=== PATIENT | female | born 1990 | race Caucasian/White ===

== ENCOUNTER → 2018-01-12 | Outpatient (CLI) | payer OTHER ==
[~2018-01-12] MED LIST: SPRI28TA PO
== END ==
LOC: HPND 07:45
PROVIDERS: ATTEND Family Medicine
DX: O26.842 Uterine size-date discrepancy, second trimester (principal); Z34.92 Encounter for supervision of normal pregnancy, unspecified, second trimester
CPT/HCPCS: 76805

== ENCOUNTER → 2018-02-09 | Outpatient (CLI) | payer OTHER | LOC: HPND 07:48 | PROVIDERS: ATTEND Family Medicine | DX: O26.842 Uterine size-date discrepancy, second trimester (principal); Z36.2 Encounter for other antenatal screening follow-up; Z3A.00 Weeks of gestation of pregnancy not specified | CPT/HCPCS: 76816 ==

== ENCOUNTER 2018-06-15 19:00 | Inpatient (IN) ==
[2018-06-15] MEDS ORDERED: Sod Chloride 0.9% Inj 1,000 ML IV.CONT PRN (19:46)
[2018-06-15] MEDS ORDERED: Naloxone Inj 0.4 MG/ML Vial IV.PUSH PRN (19:46)
[2018-06-15] MEDS ORDERED: fentaNYL Citrate Inj 100 MCG/2 ML Ampul IV.PUSH PRN ×2 (19:46)
[2018-06-15] MEDS ORDERED: Oxytocin 30 Units/500ml Premix 30 UNITS/500 ML BAG IV.SIG ONE (19:46)
[2018-06-15] MEDS ORDERED: Sodium Chlor 0.9% Inj 500 ML IV.SIG PRN (19:46)
--- NOTE | 2018-06-15 19:57 | ED ---
History of Present Illness Primary Care Physician: NOT REQUIRED Chief Complaint: Loss of fluids History of Present Illness: 27-year-old female at 37 weeks and 2 days presents with loss of fluids and contractions. She broke her water at 5 PM. Her contractions have been every 5 minutes. Denies vaginal bleeding or decreased movement. Her has been uncomplicated. GBS negative. Previous delivery was at term vaginally. No complications with that . Denies any chest pain, shortness of breath or urinary symptoms at this time. Per chart review recurrent UTIs the last on 11 June was positive for nitrates. Patient was given Macrobid but states that she never had prescription filled. In May patient was also found to be anemic H&H 9.7 31.6. Weeks Gestation:: 37 Para: 1 : 2 - Inpatient Certification I certify that the inpatient services were ordered in accordance with Medicare regulations governing the order. This includes certification that hospital inpatient services are reasonable and necessary and in the case of services not specified as inpatient-only under 42 CFR 419.22(n), that they are appropriately provided as inpatient services in accordance to with the 2-midnight benchmark under 43 CFR 412.3(e) Estimated Total Length of Stay (Days): 3 Plans for Post Hospital Care: Home Review of Systems All other systems reviewed negative except as stated in HPI PMFSH - Medical / Surgical Hx Neg / Unobtainable Medical Problems Denied: Yes Surgical History: No Previous Surgery - Tobacco History Tobacco Use In Past 30 Days: No Smoking Status: Never smoker - Alcohol History How Often Do You Have a Drink Containing Alcohol: Never - Substance Use History Substance History: No History of Abuse Medications and Allergies Allergies Allergy/AdvReac Type Severity Reaction Status Date / Time No Known Allergies Allergy Uncoded 10/30/16 15:26 Exam Vital signs: Vital Signs 06/15/18 19:35 06/15/18 19:36 Temperature 98.5 F Pulse Rate 86 Respiratory Rate 18 Blood Pressure 116/76 Narrative: GENERAL: Well-nourished, well-developed patient. SKIN: Warm and dry. HEAD: Normocephalic and atraumatic. EYES: No scleral icterus. No injection or drainage. ENT: No nasal drainage noted. Mucous membranes pink. Airway patent. NECK: Supple, trachea midline. No JVD. CARDIOVASCULAR: Regular rate and rhythm without murmurs, gallops, or rubs. RESPIRATORY: Breath sounds equal bilaterally. No accessory muscle use. BREASTS: Bilateral exam showed no masses , no retractions, no nipple discharge. ABDOMEN/GI: Abdomen soft, non-tender, bowel sounds present, no rebound, no guarding GENITOURINARY: External Genitalia: intact and normal in appearance Cervix: posterior Dilatation: 2-3 Effacement: 60 Station: -3 Presentation: vertex Membranes: ruptured Uterine Contractions: 5-6 minutes FHT's: Category: 1 Baseline: 145 Reactive: yes Variability: moderate Decels: one variable EXTREMITIES: No cyanosis or edema. BACK: Nontender without obvious deformity. No CVA tenderness. NEUROLOGICAL: Awake and alert. Motor and sensory grossly within normal limits. Five out of 5 muscle strength in all muscle groups. Normal speech. Assessment and Plan - Diagnosis (1) Uterine contractions Status: Acute Plan: 27-year-old female at 37 weeks and 2 days who presents with rupture of membranes and contractions. Per patient and chart review GBS negative -Admit to labor and delivery -follow up on labs -if contractions less than 6 minutes apart consider oxytocin Discharge Plan - Discharge Disposition Patient Disposition: 30 Still Patient - Physicians Team ED Provider: Randall Robles Primary Care Provider: NOT REQUIRED,
[2018-06-15] MEDS ORDERED: Citric Acid/Sodium Citrate Liq 30 ML UDC PO SCH (20:00)
--- NOTE | 2018-06-15 20:01 | P.HPOB ---
History of Present Illness Primary Care Physician: NOT REQUIRED Chief Complaint: Loss of fluids History of Present Illness: 27-year-old female at 37 weeks and 2 days presents with loss of fluids and contractions. She broke her water at 5 PM. Her contractions have been every 5 minutes. Denies vaginal bleeding or decreased movement. Her has been uncomplicated. GBS negative. Previous delivery was at term vaginally. No complications with that . Denies any chest pain, shortness of breath or urinary symptoms at this time. Per chart review recurrent UTIs the last on 11 June was positive for nitrates. Patient was given Macrobid but states that she never had prescription filled. In May patient was also found to be anemic H&H 9.7 31.6. Weeks Gestation:: 37 - Inpatient Certification I certify that the inpatient services were ordered in accordance with Medicare regulations governing the order. This includes certification that hospital inpatient services are reasonable and necessary and in the case of services not specified as inpatient-only under 42 CFR 419.22(n), that they are appropriately provided as inpatient services in accordance to with the 2-midnight benchmark under 43 CFR 412.3(e) Estimated Total Length of Stay (Days): 3 Plans for Post Hospital Care: Home Review of Systems All other systems reviewed negative except as stated in HPI PMFSH - Medical / Surgical Hx Neg / Unobtainable Medical Problems Denied: Yes - Tobacco History Tobacco Use In Past 30 Days: No Smoking Status: Never smoker - Alcohol History How Often Do You Have a Drink Containing Alcohol: Never - Substance Use History Substance History: No History of Abuse Medications and Allergies Active Medications: Active Medications Citric Acid/Sodium Citrate (Sodium Citrate/Citric Acid Liq) 30 ml PO ALL TERRAIN VEHICLE RACER [facility] Stop: 06/19/18 19:59 Fentanyl Citrate (Fentanyl Inj) 50 mcg IV.PUSH Q1H PRN PRN Reason: Pain Scale 3 - 5 Fentanyl Citrate (Fentanyl Inj) 100 mcg IV.PUSH Q1H PRN PRN Reason: PAIN SCALE 6 TO 10 Lactated Ringer's (Lr 1000 Ml Inj) 1,000 mls @ 125 mls/hr IV.CONT .Q8H [facility] Lactated Ringer's (Lr 1000 Ml Inj) 1,000 mls @ 3,000 mls/hr IV.SIG UNSCH PRN PRN Reason: compromise or epidural Sodium Chloride (Ns Inj) 500 mls @ 1,000 mls/hr IV.SIG UNSCH PRN PRN Reason: SEE LABEL COMMENTS Sodium Chloride (Ns Inj) 1,000 mls @ 100 mls/hr IV.CONT .Q10H PRN PRN Reason: SEE LABEL COMMENTS Oxytocin (Pitocin 30 Units/Ns 500 Ml Premix) 30 units in 500 mls @ 999 mls/hr IV.SIG BOLUS ONE Stop: 06/15/18 20:16 Lidocaine HCl (Xylocaine 1% Inj) 0.1 ml I-DERMAL PRN PRN PRN Reason: For IV start Stop: 06/18/18 19:45 Lidocaine HCl (Xylocaine 1% Inj) 10 ml INFILTRATN PRN PRN PRN Reason: For episiotomy repair Stop: 06/17/18 19:45 Mineral Oil (Muri-Lube Oil) 10 ml TOPICAL PRN PRN PRN Reason: PRN perineal massage Naloxone HCl (Narcan Inj) 0.1 mg IV.PUSH Q2M PRN PRN Reason: for opiate reversal Allergies Allergy/AdvReac Type Severity Reaction Status Date / Time No Known Allergies Allergy Uncoded 10/30/16 15:26 Exam Vital signs: Vital Signs 06/15/18 19:35 06/15/18 19:36 Temperature 98.5 F Pulse Rate 86 Respiratory Rate 18 Blood Pressure 116/76 Narrative: GENERAL: Well-nourished, well-developed patient. SKIN: Warm and dry. HEAD: Normocephalic and atraumatic. EYES: No scleral icterus. No injection or drainage. ENT: No nasal drainage noted. Mucous membranes pink. Airway patent. NECK: Supple, trachea midline. No JVD. CARDIOVASCULAR: Regular rate and rhythm without murmurs, gallops, or rubs. RESPIRATORY: Breath sounds equal bilaterally. No accessory muscle use. BREASTS: Bilateral exam showed no masses , no retractions, no nipple discharge. ABDOMEN/GI: Abdomen soft, non-tender, bowel sounds present, no rebound, no guarding GENITOURINARY: External Genitalia: intact and normal in appearance Cervix: posterior Dilatation: 2-3 Effacement: 60 Station: -3 Presentation: vertex Membranes: ruptured Uterine Contractions: 5-6 minutes FHT's: Category: 1 Baseline: 145 Reactive: yes Variability: moderate Decels: one variable EXTREMITIES: No cyanosis or edema. BACK: Nontender without obvious deformity. No CVA tenderness. NEUROLOGICAL: Awake and alert. Motor and sensory grossly within normal limits. Five out of 5 muscle strength in all muscle groups. Normal speech. Caprini VTE Risk Assessment Caprini VTE Risk Assessment: No/Low Risk (score <= 1) Caprini Risk Assessment Model: Point Value = 1 Point Value = 2 Point Value = 3 Point Value = 5 Age 41-60 Minor surgery BMI > 25 kg/m2 Swollen legs Varicose veins or History of unexplained or recurrent spontaneous Oral contraceptives or hormone replacement Sepsis (< 1 month) Serious lung disease, including pneumonia (< 1 month) Abnormal pulmonary function Acute myocardial infarction Congestive heart failure (< 1 month) History of inflammatory bowel disease Medical patient at bed rest Age 61-74 Arthroscopic surgery Major open surgery (> 45 min) Laparoscopic surgery (> 45 min) Malignancy Confined to bed (> 72 hours) Immobilizing plaster cast Central venous access Age >= 75 History of VTE Family history of VTE Factor V Leiden Prothrombin [id number] Lupus anticoagulant Anticardiolipin antibodies Elevated serum homocysteine Heparin-induced thrombocytopenia Other congenital or acquired thrombophilia Stroke (< 1 month) Elective arthroplasty Hip, pelvis, or leg fracture Acute spinal cord injury (< 1 month) Prophylaxis Regimen: Total Risk Factor Score Risk Level Prophylaxis Regimen 0-1 Low Early ambulation 2 Moderate Order ONE of the following: *Sequential Compression Device (SCD) *Heparin 5000 units SQ BID 3-4 Higher Order ONE of the following medications: *Heparin 5000 units SQ TID *Enoxaparin/Lovenox 40 mg SQ daily (WT < 150 kg, CrCl > 30 mL/min) *Enoxaparin/Lovenox 30 mg SQ daily (WT < 150 kg, CrCl > 10-29 mL/min) *Enoxaparin/Lovenox 30 mg SQ BID (WT < 150 kg, CrCl > 30 mL/min) AND/OR *Sequential Compression Device (SCD) 5 or more Highest Order ONE of the following medications: *Heparin 5000 units SQ TID (Preferred with Epidurals) *Enoxaparin/Lovenox 40 mg SQ daily (WT < 150 kg, CrCl > 30 mL/min) *Enoxaparin/Lovenox 30 mg SQ daily (WT < 150 kg, CrCl > 10-29 mL/min) *Enoxaparin/Lovenox 30 mg SQ BID (WT < 150 kg, CrCl > 30 mL/min) AND *Sequential Compression Device (SCD) Assessment and Plan - Diagnosis (1) Uterine contractions Status: Acute Plan: 27-year-old female at 37 weeks and 2 days who presents with rupture of membranes and contractions. Per patient and chart review GBS negative -Admit to labor and delivery -follow up on labs -if contractions less than 6 minutes apart consider oxytocin
[2018-06-15 20:51] LABS: Baso % (Auto) 0.4 % (0.0-2.0); Eos % (Auto) 0.1 % (0.0-4.0); Hematocrit 34.5 % (35.0-46.0); Hemoglobin 11.1 gm/dL (11.6-15.3); Lymph # (Auto) 1.3 th/mm3 (1.0-4.8); Lymph % (Auto) 12.2 % (9.0-44.0); Mean Corpuscular HGB Conc 32.3 % (32.0-36.0); Mean Corpuscular Hemoglobin 26.3 pg (27.0-34.0); Mean Corpuscular Volume 81.5 fL (80.0-100.0); Mean Platelet Volume 9.4 fL (7.0-11.0); Mono # (Auto) 0.3 th/mm3 (0.0-0.9); Mono % (Auto) 2.7 % (0.0-8.0); Neut # (Auto) 8.8 th/mm3 (1.8-7.7); Neut % (Auto) 84.6 % (16.0-70.0); Platelet Count 251 th/mm3 (150-450); Red Blood Count 4.23 mil/mm3 (4.00-5.30); Red Cell Distribution Width 14.2 % (11.6-17.2); White Blood Count 10.4 th/mm3 (4.0-11.0)
[2018-06-15] MEDS ORDERED: fentaNYL 2MCG-Bupiv 0.125% Epi 150 ML EPIDURAL ONE (21:06)
[2018-06-15 21:52] LABS: Bacteria,Urine Few /hpf; Bilirubin,Urine Negative (Negative); Clarity,Urine Hazy (Clear); Color,Urine Yellow (Yellw/Straw); Glucose,Urine (UA) Negative (Negative); Leukocyte Esterase,Urine Small (Negative); Mucus,Urine Few /lpf (Occasional); Nitrite,Urine Negative (Negative); Specific Gravity,Urine 1.017 (1.002-1.035); Squamous Epithelial Cell,Urine 10 /hpf (0-5)
[2018-06-15 21:53] LABS: Amphetamine Urine With Conf Neg (Neg); Benzodiazepine Urine With Conf Neg (Neg)
[2018-06-15] MEDS ORDERED: fentaNYL Citrate Inj 100 MCG/2 ML Ampul EPIDURAL ONE (22:10)
[2018-06-15] MEDS ORDERED: fentaNYL 2MCG-Bupiv 0.125% Epi 150 ML EPIDURAL PRN (22:10)
[2018-06-16] MEDS ORDERED: Zolpidem Tartrate 5 MG Tablet PO PRN (00:25)
[2018-06-16] MEDS ORDERED: Witch Hazel 50%/Glyderin 12.5% 40 Pad Jar RECTAL PRN (00:25)
[2018-06-16] MEDS ORDERED: Bisacodyl 10 MG Supp RECTAL PRN (00:25)
[2018-06-16] MEDS ORDERED: Naloxone Inj 0.4 MG/ML Vial IV.PUSH PRN (00:25)
[2018-06-16] MEDS ORDERED: Acetaminophen 325 MG Tablet PO PRN (00:25)
[2018-06-16] MEDS ORDERED: Benzocaine 20% Top Spray 60 ML Can TOPICAL PRN (00:25)
[2018-06-16] MEDS ORDERED: Oxytocin 30 Units/500ml Premix 30 UNITS/500 ML BAG IV.CONT SCH (00:30)
--- NOTE | 2018-06-16 00:33 | P.OBDELI ---
Weeks Gestation: 37 Patient Started Active Labor: Yes Medical Induction of Labor: No Artificial Rupture of Membrane: No Anesthesia: Epidural Episiotomy: none Vaginal Delivery: Normal Presentation: Occiput anterior Nuchal Cord: x2 Delayed Cord Clamping (45 sec): No Placenta: Spontaneous delivery Laceration: None Estimated blood loss (mL): 200 Infant: Female Female A score (1 min): 9 score (5 min): 9 Additional Information: Head delivered by maternal effort. Nuchal cord X 2 clamped and cut. Anterior shoulder delivered without complication. Placenta delivered without complication. No repairs necessary.
[2018-06-16] MEDS: Senna/Docusate Sodium 8.6/50 MG Tablet PO SCH (10:00)
[2018-06-16] MEDS: Prenatal Vit/Ca/Iron/Folic Acid Tablet PO SCH (10:00)
[2018-06-16] MEDS: Ibuprofen 400 MG Tablet PO PRN ×2 (10:04→19:05)
[2018-06-16] MEDS ORDERED: Measles/Mumps/Rubella Vaccine Inj 0.5 ML Vial SQ ONE (16:00)
[2018-06-16] MEDS ORDERED: Diphtheria/Tetanus/Pertussis Vaccine Inj 0.5 ML Syringe IM ONE (16:00)
[2018-06-17] MEDS: Senna/Docusate Sodium 8.6/50 MG Tablet PO SCH ×2 (02:21→08:59)
--- NOTE | 2018-06-17 08:11 | P.PNOB ---
Subjective Post day: 1 Interval history: day #1 AFVSS overnight. Decreased lochia. Denies dysuria. No breast tenderness. Appetite good. No nausea or vomiting. Positive flatus/bowel movement. Ambulating well. Denies calf pain or shortness of breath. Otherwise, she is doing well this morning and has no other complaints. Objective Vital Signs/I&O: Vital Signs 06/16/18 20:00 06/17/18 00:00 Temperature 98.5 F 98.6 F Pulse Rate 79 68 Respiratory Rate 18 18 Blood Pressure 130/78 113/68 Result Diagrams: 06/15/18 20:30 Objective Remarks: GENERAL: Well-nourished, well-developed patient. CARDIOVASCULAR: Regular rate and rhythm without murmurs, gallops, or rubs. RESPIRATORY: Breath sounds equal bilaterally. No accessory muscle use. ABDOMEN/GI: Abdomen soft, non-tender. Fundus: Firm, non-tender at umbilicus. GENITOURINARY: Light to moderate bleeding. EXTREMITIES: No cyanosis or edema, non-tender, without signs of DVT. Medications and IVs: Active Medications Acetaminophen (Tylenol) 650 mg PO Q4H PRN PRN Reason: PAIN SCALE 1 TO 2 Al Hydroxide/Mg Hydroxide (Milk Of Magnesia Liq) 30 ml PO Q12H PRN PRN Reason: Mild Constipation Benzocaine (Americaine 20% Top [place]) 1 spray TOPICAL Q4H PRN PRN Reason: For Perineum Discomfort Bisacodyl (Dulcolax Supp) 10 mg RECTAL DAILY PRN PRN Reason: SEVERE CONSITIPATION Citric Acid/Sodium Citrate (Sodium Citrate/Citric Acid Liq) 30 ml PO [employer] [facility] Stop: 06/19/18 19:59 Ibuprofen (Motrin) 800 mg PO Q8H PRN PRN Reason: For cramping Last Admin: 06/16/18 19:05 Dose: 800 mg Lactulose (Lactulose Liq) 30 ml PO DAILY PRN PRN Reason: SEVERE CONSITIPATION Lidocaine HCl (Xylocaine 1% Inj) 0.1 ml I-DERMAL PRN PRN PRN Reason: For IV start Stop: 06/18/18 19:45 Lidocaine HCl (Xylocaine 1% Inj) 10 ml INFILTRATN PRN PRN PRN Reason: For episiotomy repair Stop: 06/17/18 19:45 Naloxone HCl (Narcan Inj) 0.1 mg IV.PUSH Q2M PRN PRN Reason: for opiate reversal Ondansetron HCl (Zofran Odt) 4 mg PO Q6H PRN PRN Reason: NAUSEA OR VOMITING Vit/Calcium/Iron/Folic Ac (Stuartnatal Plus 3) 1 tab PO DAILY [facility] Last Admin: 06/16/18 10:00 Dose: 1 tab Senna/Docusate Sodium (Jacqueline-Colace) 1 tab PO BID [facility] Last Admin: 06/17/18 02:21 Dose: Not Given Sennosides (Senokot) 17.2 mg PO Q12H PRN PRN Reason: Moderate Constipation Sodium Chloride (Ns Flush) 2 ml IV.FLUSH PRN PRN PRN Reason: FLUSH AFTER USING IV ACCESS Sodium Chloride (Ns Flush) 2 ml IV.FLUSH BID [facility] Last Admin: 06/17/18 02:21 Dose: Not Given Witch Carmina/Glycerin (Tucks Pads) 1 applicatio RECTAL QID PRN PRN Reason: HEMORRHOIDS Zolpidem Tartrate (Ambien) 5 mg PO HS PRN PRN Reason: SLEEP Assessment and Plan - Diagnosis (1) Uterine contractions Status: Acute Plan: 27-year-old female at 37 weeks and 2 days who presents with rupture of membranes and contractions. Per patient and chart review GBS negative -Admit to labor and delivery -follow up on labs -if contractions less than 6 minutes apart consider oxytocin - Plan 27y/o female who is PPD#1 s/p . -Continue routine care. -Motrin PRN pain. -Encouraged OOB. Advised pelvic rest for 6 wks. -Re: ctrl, she would like to speak with her outpatient OB prior to deciding. -D/c likely today or tomorrow. wdw Dr. Jimenez
[2018-06-17 08:45] VITALS: BP 119/79; PULSE 72; RESP 16; TEMP 97.9
[2018-06-17] MEDS: Prenatal Vit/Ca/Iron/Folic Acid Tablet PO SCH (08:59)
[2018-06-17] MEDS ORDERED: Nitrofurantoin Monohydrate-Macrocrystal 100 MG Capsule PO SCH (18:00)
== END 2018-06-17 12:21 | disposition home or self-care (01) ==
LOC: HOBED 19:00 → H2E 19:33 → H1EA 06-16 02:31
PROVIDERS: ADMIT Obstetrics & Gynecology Maternal & Fetal Medicine; ATTEND Obstetrics & Gynecology Maternal & Fetal Medicine